=== PATIENT | female | born 1970 | race Caucasian/White ===

== ENCOUNTER → 2016-12-18 | Day surgery (SDC) | payer MEDICARE, OTHER ==
[~2016-12-18] VITALS: Ht 167.6 cm; Wt 89.6 kg
[~2016-12-18] MED LIST: *HYDROmorphone PF 1 MG VIAL PERIprocedural Use ONLY ONE; BUPR150CR PO; CLON1 PO; DO NOT ADM ANY ANTICOAGULANT DRUGS XX PRN; FERR325T PO; GABA800T PO; INSULIN HUMAN REGULAR 1,000 UNITS/10 ML VIAL SQ PRN; KETOROLAC TROMETHAMINE 30 MG/ML (IVP) VIAL ONE; LACTATED RINGER'S 1000 ML IV SCH; LIDOCAINE 1%/EPINEPHrine 1:100,000 SOLN 30 ML VIAL ONE; LORazepam 2 MG/ML VIAL IV ONE; LORazepam 2 MG/ML VIAL ONE; METOPROLOL TARTRATE 25 MG TAB PO PRN; MIDAZOLAM HCL 2 MG/2 ML VIAL ONE; ONDANSETRON HCL 4 MG/2 ML VIAL ONE; ONDANSETRON HCL 4 MG/5 ML UDC ONE; PROPOFOL 200 MG/20 ML AMP IV ONE; SODIUM CHLORID 0.9% 500 ML IV SCH; TRAM50TA PO; TRAZ50TA12 PO; VIIB40TA PO; ceFAZolin INJ 1,000 MG VIAL IV ONE; ceFAZolin INJ 1,000 MG VIAL ONE
[2016-12-18 12:05] VITALS: BP 163/100; PULSE 95; RESP 16; TEMP 98; O2SAT 96
[2016-12-18 12:32] LABS: AUTOMATED NEUTROPHIL # 4.1 TH/MM3 (1.8-7.7); BASOPHIL # 0.1 TH/MM3 (0-0.2); BASOPHIL % 1.4 % (0.0-2.0); EOSINOPHIL # 0.2 TH/MM3 (0-0.4); EOSINOPHIL % 3.3 % (0.0-4.0); HEMATOCRIT 38.1 % (35.0-46.0); HEMO FLAGS DIFF FINAL; LYMPH % 20.6 % (9.0-44.0); LYMPHOCYTE # 1.3 TH/MM3 (1.0-4.8); MEAN CELL VOLUME 81.9 FL (80.0-100.0); MEAN CORPUSCULAR HEMOGLOBIN 27.7 PG (27.0-34.0); MEAN CORPUSCULAR HGB CONC 33.8 % (32.0-36.0); MONO % 6.5 % (0.0-8.0); NEUT % 68.2 % (16.0-70.0); PLATELET COUNT 276 TH/MM3 (150-450); RED BLOOD COUNT 4.65 MIL/MM3 (4.00-5.30); RED CELL DISTRIBUTION WIDTH 17.1 % (11.6-17.2); WHITE BLOOD COUNT 6.1 TH/MM3 (4.0-11.0)
[2016-12-18 12:41] LABS: APTT (PATIENT) 26.2 SEC (24.3-30.1); PROTHROMBIN TIME - PATIENT 11.1 SEC (9.8-11.6)
[2016-12-18 16:28] VITALS: BP 154/92; PULSE 91; RESP 18; TEMP 97.4; O2SAT 99
--- NOTE | 2016-12-26 05:41 | MP ---
cc: ONOFRE STEPHEN MD,ANDRES BEAVERGULSHAN DATE OF SURGERY 12/18/2016 PREOPERATIVE DIAGNOSES 1. High-grade cervical dysplasia. 2. Status post prior LEEP procedure with negative margins but with positive endocervical curetting for high-grade dysplasia above the LEEP site. PROCEDURE 1. Examination under anesthesia. 2. Cold knife conization. 3. Endocervical curettage. ESTIMATED BLOOD LOSS 30 cc. SURGEON Onofre Stephen MD HUMAN FACTORS SPECIALIST [place] psychiatric technician assistant. ANESTHESIA General endotracheal anesthesia. IV FLUIDS Approximately 800. HISTORY A 46-year-old female with high-grade cervix dysplasia, underwent a LEEP procedure that confirmed high-grade squamous dysplasia. The ectocervical margins were negative. However, at the apex of the LEEP procedure was still detached fragments of high-grade dysplasia. She was counseled regarding concerns about the possibility of occult malignancy higher in the cervical canal and we recommended a conization to ensure there is no evidence of invasive disease prior to moving forward with a hysterectomy which was ultimately what she prefers for definitive treatment. FINDINGS Cervix grossly appears normal, has healed well healed well from the procedure. She has a very prominent cervix, although the tissue appears normal. The uterus is prominent. No adenopathy or overt neoplasm. The transformation zone is difficult to visualize due to healing from the prior LEEP procedure. PROCEDURE The patient was taken to the operating room, placed in dorsal lithotomy position after general endotracheal anesthesia was administered. Time-out was undertaken. The patient was identified by sight recognition and hospital ID bracelet and the proposed procedure was reviewed and confirmed. Exam under anesthesia was performed, reevaluation of the cervix after application of dilute acetic acid and exam under anesthesia with findings as described above. She was prepped and draped in sterile fashion. 0 Vicryl sutures were placed at the 3 and 9 o'clock positions on the lateral cervix, lidocaine epinephrine injected circumferentially into the cervix. The axis of the cervical canal and endometrium were identified using a uterine sound. Scalpel was used to form a central narrow cone incorporating the endocervical canal where it was removed as conization specimen followed by multiple passes, endocervical curetting proximal to the apex of the cone. This tissue was combined and labeled as endocervical curetting. The cone bed was cauterized, was rendered hemostatic and then topical Monsel's solution was used. Preliminary counts were correct. There were no remaining foreign objects in the vagina. It was completely hemostatic. Final counts were correct. She was returned to dorsal supine position and was pending reversal of anesthesia when I left the operating room to precede her to the Post-Anesthesia Care Unit. MD ELVA Hairston/SSB /10:45 AM /5:33 AM
== END | disposition home or self-care (01) ==
LOC: HSDC 11:09
PROVIDERS: ATTEND Obstetrics & Gynecology Gynecologic Oncology
DX: D06.9 Carcinoma in situ of cervix, unspecified (principal)
CPT/HCPCS: 00940; 57520; 85025; 85610; 85730; 86850; 86900; 86901; 88305; 88307; J0690; J1170; J1885; J2060; J2250; J2405; J3010; J7120

== ENCOUNTER 2017-02-18 08:20 | Inpatient (IN) | payer MEDICARE, OTHER ==
[~2017-02-18] VITALS: Ht 167.6 cm; Wt 87.8 kg
[~2017-02-18 08:20] MED LIST changes: -*HYDROmorphone PF 1 MG VIAL PERIprocedural Use ONLY ONE; -DO NOT ADM ANY ANTICOAGULANT DRUGS XX PRN; -INSULIN HUMAN REGULAR 1,000 UNITS/10 ML VIAL SQ PRN; -KETOROLAC TROMETHAMINE 30 MG/ML (IVP) VIAL ONE; -LACTATED RINGER'S 1000 ML IV SCH; -LIDOCAINE 1%/EPINEPHrine 1:100,000 SOLN 30 ML VIAL ONE; -LORazepam 2 MG/ML VIAL IV ONE; -LORazepam 2 MG/ML VIAL ONE; -METOPROLOL TARTRATE 25 MG TAB PO PRN; -MIDAZOLAM HCL 2 MG/2 ML VIAL ONE; -ONDANSETRON HCL 4 MG/2 ML VIAL ONE; -ONDANSETRON HCL 4 MG/5 ML UDC ONE; -PROPOFOL 200 MG/20 ML AMP IV ONE; -SODIUM CHLORID 0.9% 500 ML IV SCH; -TRAM50TA PO; -ceFAZolin INJ 1,000 MG VIAL IV ONE; -ceFAZolin INJ 1,000 MG VIAL ONE
[2017-02-18 08:30] VITALS: BP 114/81; PULSE 86; RESP 16; TEMP 98.1; O2SAT 95
[2017-02-18] MEDS ORDERED: LACTATED RINGER'S 1000 ML IV SCH (09:00)
[2017-02-18] MEDS ORDERED: HEPARIN SODIUM - SQ 10,000 UNITS/ML VIAL SQ SCH (09:00)
[2017-02-18] MEDS ORDERED: SODIUM CHLORID 0.9% 500 ML IV SCH (09:00)
[2017-02-18] MEDS ORDERED: INSULIN HUMAN REGULAR 1,000 UNITS/10 ML VIAL SQ PRN (09:00)
[2017-02-18] MEDS ORDERED: ceFAZolin 2 GM PREMIX 50 ML IV SCH (09:00)
[2017-02-18] MEDS ORDERED: METOPROLOL TARTRATE 25 MG TAB PO PRN (09:00)
[2017-02-18] MEDS ORDERED: ACETAMINOPHEN 1000 MG/100 ML VIAL IV ONE (12:06)
[2017-02-18] MEDS ORDERED: FAMOTIDINE 20 MG/2 ML VIAL ONE (12:06)
[2017-02-18] MEDS ORDERED: DEXAMETHASONE SOD PHOS 4 MG/ML VIAL ONE (12:39)
[2017-02-18] MEDS ORDERED: MIDAZOLAM HCL 2 MG/2 ML VIAL ONE (12:39)
[2017-02-18] MEDS ORDERED: LIDOCAINE 1%/EPINEPHrine 1:100,000 SOLN 30 ML VIAL INFIL ONE (13:33)
[2017-02-18] MEDS ORDERED: ceFAZolin INJ 1,000 MG VIAL IV ONE (15:05)
[2017-02-18] MEDS ORDERED: SUGAMMADEX SODIUM 200 MG/2 ML VIAL IV PUSH ONE ×2 (15:33)
[2017-02-18] MEDS ORDERED: D5-1/2 NS + KCL 20 MEQ INJ 1,000 ML IV SCH (16:28)
[2017-02-18] MEDS ORDERED: SODIUM CHLORIDE 0.9% FLUSH 10 ML FLUSH IV FLUSH PRN ×2 (16:30)
[2017-02-18] MEDS ORDERED: diphenhydrAMINE HCL 25 MG CAP PO PRN ×2 (16:30)
[2017-02-18] MEDS ORDERED: ONDANSETRON HCL 4 MG/2 ML VIAL IVP PRN ×2 (16:30)
[2017-02-18] MEDS ORDERED: KETOROLAC TROMETHAMINE 30 MG/ML (IVP) VIAL IVP SCH (16:30)
[2017-02-18] MEDS ORDERED: oxyCODONE/ACETAMINOPHEN 5 MG/325 MG TAB PO PRN (16:30)
[2017-02-18] MEDS ORDERED: *HYDROmorphone PF 1 MG VIAL PERIprocedural Use ONLY ONE ×2 (16:49→17:04)
[2017-02-18] MEDS ORDERED: fentaNYL CITRATE 250 MCG/5 ML AMP ONE (16:56)
[2017-02-18] MEDS: KETOROLAC TROMETHAMINE 30 MG/ML (IVP) VIAL IVP SCH ×2 (17:00→20:35)
[2017-02-18] MEDS: D5-1/2 NS + KCL 20 MEQ INJ 1,000 ML IV SCH (17:00)
[2017-02-18] MEDS ORDERED: DO NOT ADM ANY ANTICOAGULANT DRUGS XX PRN (17:00)
[2017-02-18] MEDS ORDERED: ONDANSETRON INJ 8 MG in DEXTROSE 5% IN WATER INJ 50 ML IV PUSH PRN ×2 (17:15)
[2017-02-18] MEDS ORDERED: *ONDANSETRON 4 MG VIAL PERIprocedural Use ONLY ONE (17:30)
[2017-02-18] MEDS ORDERED: VILAZODONE 40 MG PO SCH (18:00)
[2017-02-18] MEDS: GABAPENTIN 400 MG CAP PO SCH ×2 (18:00→23:35)
[2017-02-18 18:10] VITALS: BP 150/94; PULSE 88; RESP 22; TEMP 96.8; O2SAT 100
[2017-02-18] MEDS: oxyCODONE/ACETAMINOPHEN 5 MG/325 MG TAB PO PRN ×2 (18:57→23:35)
[2017-02-18 20:00] VITALS: BP 144/88; PULSE 60; RESP 18; TEMP 97.7; O2SAT 97
[2017-02-18] MEDS: traZODone HCL 50 MG TAB PO SCH (20:01)
[2017-02-18] MEDS: buPROPion HCL 150 MG SUSTAINED RELEASE TAB PO SCH (20:01)
[2017-02-18] MEDS: clonazePAM 1 MG TAB PO SCH (20:02)
[2017-02-18] MEDS: SODIUM CHLORIDE 0.9% FLUSH 10 ML FLUSH IV FLUSH SCH (20:03)
[2017-02-18 20:21] VITALS: O2SAT 99
[2017-02-18] MEDS ORDERED: traMADol HCL 50 MG TAB PO PRN (20:30)
[2017-02-18] MEDS: HYDROmorphone HCL PF 1 MG/ML VIAL IV PRN (20:59)
[2017-02-18] MEDS ORDERED: SODIUM CHLORIDE 0.9% FLUSH 10 ML FLUSH IV FLUSH SCH (21:00)
[2017-02-19] VITALS: BP 141/90; PULSE 70; RESP 18; TEMP 97.6; O2SAT 97
[2017-02-19] MEDS: HYDROmorphone HCL PF 1 MG/ML VIAL IV PRN ×7 (01:52→22:53)
[2017-02-19] MEDS: D5-1/2 NS + KCL 20 MEQ INJ 1,000 ML IV SCH ×3 (01:56→19:57)
[2017-02-19] MEDS: oxyCODONE/ACETAMINOPHEN 5 MG/325 MG TAB PO PRN ×5 (03:38→21:38)
[2017-02-19 04:00] VITALS: BP 144/94; PULSE 76; RESP 18; TEMP 97.9; O2SAT 100
[2017-02-19] MEDS: KETOROLAC TROMETHAMINE 30 MG/ML (IVP) VIAL IVP SCH ×4 (04:52→19:56)
[2017-02-19] MEDS: GABAPENTIN 400 MG CAP PO SCH ×4 (05:34→22:51)
[2017-02-19 06:56] LABS: AUTOMATED NEUTROPHIL # 7.6 TH/MM3 (1.8-7.7); BASOPHIL % 0.4 % (0.0-2.0); EOSINOPHIL % 0.5 % (0.0-4.0); HEMATOCRIT 37.5 % (35.0-46.0); HEMO FLAGS DIFF FINAL; LYMPH % 14.5 % (9.0-44.0); LYMPHOCYTE # 1.4 TH/MM3 (1.0-4.8); MEAN CELL VOLUME 82.6 FL (80.0-100.0); MEAN CORPUSCULAR HEMOGLOBIN 28.4 PG (27.0-34.0); MEAN CORPUSCULAR HGB CONC 34.4 % (32.0-36.0); MONO % 8.3 % (0.0-8.0); NEUT % 76.3 % (16.0-70.0); PLATELET COUNT 300 TH/MM3 (150-450); RED BLOOD COUNT 4.54 MIL/MM3 (4.00-5.30); RED CELL DISTRIBUTION WIDTH 14.9 % (11.6-17.2)
[2017-02-19 07:14] LABS: BICARBONATE 23.9 MEQ/L (21.0-32.0); POTASSIUM 3.7 MEQ/L (3.5-5.1)
[2017-02-19] MEDS: clonazePAM 1 MG TAB PO SCH ×2 (07:59→21:34)
[2017-02-19 08:00] VITALS: BP 137/80; PULSE 74; RESP 20; TEMP 96.8; O2SAT 97
[2017-02-19] MEDS: SODIUM CHLORIDE 0.9% FLUSH 10 ML FLUSH IV FLUSH SCH ×2 (08:00→19:57)
[2017-02-19] MEDS: buPROPion HCL 150 MG SUSTAINED RELEASE TAB PO SCH ×2 (08:00→21:34)
[2017-02-19 08:19] VITALS: O2SAT 96
[2017-02-19 12:00] VITALS: BP 113/83; PULSE 102; RESP 22; TEMP 98; O2SAT 96
[2017-02-19 20:00] VITALS: BP 112/70; PULSE 91; RESP 18; TEMP 98; O2SAT 99
[2017-02-19] MEDS: traZODone HCL 50 MG TAB PO SCH (21:34)
[2017-02-20] VITALS: BP 121/84; PULSE 79; RESP 16; TEMP 97.9; O2SAT 95
[2017-02-20] MEDS: HYDROmorphone HCL PF 1 MG/ML VIAL IV PRN ×6 (02:23→22:52)
[2017-02-20] MEDS: D5-1/2 NS + KCL 20 MEQ INJ 1,000 ML IV SCH ×3 (02:23→22:55)
[2017-02-20] MEDS: KETOROLAC TROMETHAMINE 30 MG/ML (IVP) VIAL IVP SCH ×4 (03:36→22:51)
[2017-02-20] MEDS: oxyCODONE/ACETAMINOPHEN 5 MG/325 MG TAB PO PRN ×5 (03:37→20:25)
[2017-02-20 04:00] VITALS: BP 141/75; PULSE 72; RESP 18; TEMP 97; O2SAT 98
[2017-02-20] MEDS: GABAPENTIN 400 MG CAP PO SCH ×4 (06:21→22:52)
[2017-02-20 07:50] VITALS: BP 125/83; PULSE 74; RESP 20; TEMP 96; O2SAT 95
--- NOTE | 2017-02-20 08:14 | PD.ONC.PN ---
Subjective Subjective Remarks POD #2 Pt c/o pain to lower abd has been OOB to chair X 1 yesterday reports not eating much no other complaints states using IS Objective Data Date Time Temp Pulse Resp B/P Pulse Ox O2 Delivery O2 Flow Rate FiO2 02/20/17 04:00 97.0 72 18 141/75 98 02/20/17 00:00 97.9 79 16 121/84 95 02/19/17 20:00 98.0 91 18 112/70 99 02/19/17 12:00 98.0 102 22 113/83 96 02/19/17 08:19 96 21 Result Diagram: 02/19/17 0530 02/19/17 0530 Administered Medications Medications (Trade) Dose Ordered Sig/Geovany Route PRN Reason Start Time Stop Time Status Last Admin Dose Admin Bupropion HCl (Wellbutrin Sr) 150 mg Q12HR PO 02/18/17 21:00 02/19/17 21:34 Clonazepam (KlonoPIN) 1 mg BID PO 02/18/17 21:00 02/19/17 21:34 Gabapentin (Neurontin) 400 mg Q6HR PO 02/18/17 18:00 02/20/17 06:21 Trazodone HCl 50 mg 50 mg HS PO 02/18/17 21:00 02/19/17 21:34 Potassium Chloride/Dextrose/ Sod Cl (D5-1/2 NS + KCl 20 Meq Inj) 1,000 ml @ 125 mls/hr Q8H IV 02/18/17 17:00 02/20/17 02:23 Ketorolac Tromethamine (Toradol Inj) 30 mg Q6H IVP 02/18/17 17:00 02/21/17 11:01 02/20/17 03:36 Oxycodone/ Acetaminophen 2 tab 2 tab Q4H PRN PO PAIN SCALE 6 TO 10 02/18/17 16:30 02/20/17 03:37 Ondansetron HCl/ Dextrose (Zofran Inj/D5W Inj) 54 ml @ 216 mls/hr Q8HR PRN IV PUSH SEE LABEL COMMENTS 02/18/17 17:15 02/19/17 00:55 Hydromorphone HCl (Dilaudid Pf Inj) 1 mg Q3H PRN IV BREAKTHROUGH PAIN 02/18/17 21:00 02/20/17 06:22 Objective Remarks GENERAL: Well-nourished, well-developed patient. SKIN: Warm and dry. HEAD: Normocephalic. EYES: No scleral icterus. No injection or drainage. CARDIOVASCULAR: Regular rate and rhythm without murmurs. RESPIRATORY: Breath sounds equal bilaterally. No accessory muscle use. GASTROINTESTINAL: dressing C/D/I EXTREMITIES: TEDs MUSCULOSKELETAL: Adequate muscle tone. NEUROLOGICAL: No obvious focal deficit. Awake, alert, and oriented x3. PSYCHIATRIC: Appropriate mood and affect; insight and judgment normal. Assessment/Plan Problem List: (1) Post-operative state Status: Acute Plan: s/p X lap for JACK with BSO continue IV Dilaudid encourage OOB to ambulate IS at bedside encourage intake decrease IVF anticipate D/C home in next 24-48 hours Kyle Wong Feb 20, 2017 08:14
[2017-02-20] MEDS: buPROPion HCL 150 MG SUSTAINED RELEASE TAB PO SCH ×2 (08:47→20:26)
[2017-02-20] MEDS: SODIUM CHLORIDE 0.9% FLUSH 10 ML FLUSH IV FLUSH SCH ×2 (08:47→20:26)
[2017-02-20] MEDS: clonazePAM 1 MG TAB PO SCH ×2 (08:47→20:25)
[2017-02-20 11:50] VITALS: BP 121/85; PULSE 78; RESP 20; TEMP 95.9; O2SAT 99
[2017-02-20 15:50] VITALS: BP 103/82; PULSE 98; RESP 20; TEMP 96.2; O2SAT 97
[2017-02-20 20:00] VITALS: BP 121/75; PULSE 111; RESP 18; TEMP 97.7; O2SAT 96
[2017-02-20] MEDS: traZODone HCL 50 MG TAB PO SCH (20:26)
[2017-02-21] VITALS: BP 122/87; PULSE 88; RESP 18; TEMP 96.6; O2SAT 97
[2017-02-21] MEDS: oxyCODONE/ACETAMINOPHEN 5 MG/325 MG TAB PO PRN ×3 (00:20→09:49)
[2017-02-21] MEDS: HYDROmorphone HCL PF 1 MG/ML VIAL IV PRN ×2 (03:33→06:29)
[2017-02-21 04:00] VITALS: BP 116/73; PULSE 80; RESP 17; TEMP 96.9; O2SAT 100
[2017-02-21] MEDS: KETOROLAC TROMETHAMINE 30 MG/ML (IVP) VIAL IVP SCH (04:54)
[2017-02-21] MEDS: GABAPENTIN 400 MG CAP PO SCH (04:54)
--- NOTE | 2017-02-21 06:19 | MP ---
cc: ONOFRE BELL MD, JULIE D. MD HOLE, SUSAN DO DATE OF PROCEDURE 02/18/2017 PREOPERATIVE DIAGNOSES 1. Cervical carcinoma in situ. 2. Secondary diagnosis of prolapsed mass through dilated cervix. 3. Significantly enlarged uterus. POSTOPERATIVE DIAGNOSES 1. Cervical carcinoma in situ. 2. Secondary diagnosis of prolapsed mass through dilated cervix. 3. Significantly enlarged uterus. PROCEDURE Laparoscopy converted to laparotomy. Total abdominal hysterectomy. Bilateral salpingo-oophorectomy. SURGEON Onofre Bell MD GRAIN ELEVATOR SUPERINTENDENT [place] unit assistant. ANESTHESIA General endotracheal anesthesia. ESTIMATED BLOOD LOSS 200 cc. IV FLUIDS 3000 cc. URINE OUTPUT 1500 cc. HISTORY This is a 46-year-old female who had been previously treated, most recently with a conization in followup to a prior LEEP procedure both of which showed carcinoma in situ. The first one had positive margins. The second one had residual carcinoma in situ. Margins were negative. She was counseled regarding ongoing followup versus definitive hysterectomy. She was in favor of hysterectomy and presents now for that endeavor. FINDINGS Unexpectedly on exam under anesthesia there was an approximately 4-5 cm in diameter necrotic-appearing mass that had prolapsed through a dilated cervix. This was a significant change compared to exam just a few weeks ago and there was generalized induration and edema of the cervix and lower uterine segment but without obvious infiltration into the parametria. The prolapsed mass blocked access to the endometrial cavity such that uterine manipulator could not be safely placed transvaginally. Upon laparoscopic evaluation, the prominence of the uterus was better appreciated; it was at least 14 cm in size but was also quite wide in diameter, solid, suggesting multiple leiomyomas and the lower uterine segment and cervix were markedly dilated which hindered to some extent laparoscopic access to the uterine blood supply. Because of these findings, decision was made to convert to laparotomy. Upon laparotomy the findings as noted were confirmed. There were no appreciably enlarged pelvic or para-aortic lymph nodes. There were no peritoneal implants. Liver and diaphragm edges were smooth. Large and small bowel adjacent mesentery were normal without implants. Frozen section evaluation of the uterus showed it to be a prolapsed necrotic leiomyoma. There were multiple leiomyomas throughout the uterus and what appeared to be adenomyosis; no evidence of malignancy. STATEMENT OF COMPLEXITY The complexity of the case was increased due to the increased size of the uterus, anatomical changes to the cervix with prolapse of mass. Modifier should be applied accordingly. PROCEDURE The patient was taken to the operating room, placed in dorsal lithotomy position after general endotracheal anesthesia was administered. Time-out was undertaken. The patient was identified by sight recognition and ID bracelet and the proposed procedure was reviewed and confirmed. She was carefully positioned and secured in anticipation of a laparoscopic robotic case in the usual fashion, prepped and draped in sterile fashion, placed in lithotomy position. Exam under anesthesia yielded the findings as described above. Tillman catheter was placed in the bladder. She was returned to low lithotomy position. We completed draping in anticipation of laparoscopy, confirmed that an orogastric airway was in the stomach on suction. With manual elevation of the abdominal wall and direct laparoscopic visualization, a 5-mm cannula was placed in the left upper quadrant. Carbon dioxide gas was insufflated and an atraumatic entry was confirmed. An 8-mm cannula was placed in the right upper quadrant and with that a grasper was used to evaluate the anatomy, manipulate the uterus. She was placed in steep Trendelenburg position. The anatomy was surveyed with findings as described above and it was felt that this case would be more safely and effectively approached via laparotomy. Therefore midline vertical incision was made from the symphysis up toward the umbilicus, carried down to the level of the fascia. The fascia was entered, the rectus muscles were in the midline. The peritoneal cavity was entered and the anatomy was explored with findings as described above. Lap pad the Bookwalter retractor were used to assist in surgical exposure. The right round ligament was doubly suture ligated, transected. The anterior and posterior leaves of the broad ligament were opened. The right ureter was identified. The right infundibulopelvic ligament was isolated. The intervening peritoneum was opened. The infundibulopelvic ligament was doubly clamped, cut and doubly suture ligated. The posterior peritoneum was opened along the right side of the uterus and cervix and the right vesicouterine peritoneum was dissected off the lower uterine segment and cervix. Attention was directed toward the left side where the left round ligament was doubly suture ligated and transected. The anterior and posterior leaves of the broad ligament were opened. The left ureter was identified. The left infundibulopelvic ligament was isolated. The intervening peritoneum was opened. The infundibulopelvic ligament was doubly clamped, cut and suture-ligated. Posterior peritoneum was opened along the left side of the uterus and cervix and the left vesicouterine peritoneum was dissected off the lower uterine segment and cervix and the uterine vessels were skeletonized bilaterally. The vessels were prominent and extending into the lower uterine segment and cervix and the vessels were doubly clamped bilaterally which helped gerardo the uterus but there were still some prominent vessels in the region of the cervix. The uterine vessels were transected and suture-ligated as were the cardinal, paracervical and uterosacral ligaments, taken down in a stepwise fashion. There were clamped, cut and suture ligated. The anatomical borders of the cervix were outlined with visual and manual palpation and adjoining of the uterosacral ligaments and the edge of the normal cervix was identified, realizing that there was a prolapsing mass extending beyond the cervix. Curved Mckeon clamps were placed below the cervix at the lateral vaginal angles, tissue was cut and suture ligated. Now sharp dissection was used to perform a colpotomy, opening the vaginal mucosa just below the cervix circumferentially to identify and confirmed that the entire cervix was removed with the prolapsing mass and the specimen was withdrawn which included uterus, cervix, bilateral tubes and ovaries and as well as the prolapsed mass through the cervix which was sent to pathologist. The vaginal cuff was closed with interrupted 0 Vicryl [id number] sutures, tied securely which rendered the cuff hemostatic. The angles were secured with posterior peritoneum and the edge of the uterosacral ligaments. The pelvis was thoroughly irrigated, small bleeders rendered hemostatic with bipolar cautery. There was a good margin between the vaginal cuff suture line and the edge of the bladder, good peristalsis of ureters and complete hemostasis and, to assist in continued hemostasis, Goran hemostatic powder was placed across the vaginal cuff and pelvic sidewalls. Frozen section came back showing benign findings. Therefore it was felt that all reasonable surgical objectives had been completed. The lap pads and Bookwalter retractor were removed and disassembled. Visual and manual inspection confirmed there were no remaining foreign objects in the peritoneal cavity. Preliminary counts were correct. The anatomy was again surveyed with the findings as described above. The abdominal wall was closed with a 0 looped PDS starting at the apices, meeting in the midpoint where the sutures were tied using a running modified Smead-Lopez closure technique; there were tied in the midpoint. Subcutaneous tissue was irrigated, Marito's fascia reapproximated with interrupted 2-0 Vicryl sutures, the subcutaneous tissue again irrigated and subcuticular 3-0 Vicryl running was used to close the skin edges. 3-0 Vicryls were also used subcutaneous and subcuticular to close the two laparoscopic incisions and Steri-Strips were placed over all of these incisions. She was again placed in lithotomy position. Pelvic exam confirmed there were no remaining foreign objects in the vagina. Preliminary and final counts were correct. She was returned to dorsal supine position and was pending reversal of anesthesia when I left the operating room to precede her to the Post Anesthesia Care Unit and to speak with family members. MD ELVA Hairtson/KANDACE /9:06 AM /5:52 AM
[2017-02-21 07:50] VITALS: BP 137/85; PULSE 75; RESP 20; TEMP 96.2; O2SAT 99
[2017-02-21] MEDS: SODIUM CHLORIDE 0.9% FLUSH 10 ML FLUSH IV FLUSH SCH (09:00)
[2017-02-21] MEDS: buPROPion HCL 150 MG SUSTAINED RELEASE TAB PO SCH (09:49)
[2017-02-21] MEDS: clonazePAM 1 MG TAB PO SCH (09:49)
--- NOTE | 2017-02-28 07:58 | MD ---
cc: ONOFRE BELL MD,GULSHAN BENITO MD, DO ADMISSION DATE: 02/18/2017 DISCHARGE DATE: 02/21/2017 PROCEDURE 02/18/2017 laparoscopy converted to laparotomy, total abdominal hysterectomy, bilateral salpingo-oophorectomy. DIAGNOSIS Cervical carcinoma in situ, prolapsed leiomyoma through the cervix, leiomyomas and adenomyosis. HOSPITAL COURSE She did satisfactorily during her hospital course such that by postop day #3, she was tolerating oral intake. She was ambulating without assistance. She had some flatus. She had no nausea or vomiting. She is hemodynamically stable. Anxiety and pain continued to be issues, but seemed to be adequately controlled. She presented with the option of hospital care for another 24 hours versus going home. She is absolutely certain that she feels well enough and wishes to go home today. In's and out's 2700/4950, +850 in, over 1300 out. She has remained afebrile, pulse ranging from 80-111, respirations 17-20, blood pressure 103-122 over 73-87, O2 saturations greater than equal to 96%. PHYSICAL EXAM On exam, she is alert and oriented x3 in no acute distress, anxious consistent with baseline. LUNGS: Clear except for mild rales at the bases. CARDIOVASCULAR: Regular rate and rhythm. ABDOMEN: Soft. Incisions are clean and dry. She has some discomfort, tenderness consistent with surgery, but her abdomen is nonacute. GRADUATE STUDIES DEAN: There is no bleeding. EXTREMITIES: SCD's intact. Nontender. ASSESSMENT Postop day #3 progressing satisfactorily in her postop recovery. Activities and restrictions reviewed. Preliminary pathology discussed. Questions were asked and answered. She expressed a good understanding and is in favor of going home. PLAN Therefore discharge to home. She is to continue her prior medication, although I have put a hold on her iron supplement because of its GI side effects and especially in the postop period. She is to continue her previous anxiolytics and antidepressants. It was determined that Dilaudid was a better pain medicine for her then Oxycodone and she will be sent home with a prescription for oral Dilaudid. She is to contact our office to ensure she has schedule follow up within two weeks and our office number is again made available should she have any questions or problems between now in the time of scheduled followup. MD NISHA Hairston /7:28 AM /7:54 AM
== END 2017-02-21 11:30 | disposition home health service (06) | DRG 741 ==
LOC: HSDC 08:20 → HSDI 16:27 → HOCA 18:14
PROVIDERS: ADMIT Obstetrics & Gynecology Gynecologic Oncology; ATTEND Obstetrics & Gynecology Gynecologic Oncology
PROC: 0UT70ZZ Resection of Bilateral Fallopian Tubes, Open Approach (ICD-10-PCS; 2017-02-18)
PROC: 0UT20ZZ Resection of Bilateral Ovaries, Open Approach (ICD-10-PCS; 2017-02-18)
PROC: 0UTC0ZZ Resection of Cervix, Open Approach (ICD-10-PCS; 2017-02-18)
PROC: 8E0W4CZ Robotic Assisted Procedure of Trunk Region, Percutaneous Endoscopic Approach (ICD-10-PCS; 2017-02-18)
PROC: 0UT90ZZ Resection of Uterus, Open Approach (ICD-10-PCS; principal; 2017-02-18 12:42)
PROC: 0UJD4ZZ Inspection of Uterus and Cervix, Percutaneous Endoscopic Approach (ICD-10-PCS; 2017-02-18 12:42)
DX: D06.9 Carcinoma in situ of cervix, unspecified (principal); N85.2 Hypertrophy of uterus; Z53.31 Laparoscopic surgical procedure converted to open procedure
CPT/HCPCS: 80048; 85025; 86850; 86900; 86901; 88307; 88309; 88331; 94150; J0131; J0690; J1100; J1170; J1644; J1885; J2250; J2405; J3010; J3480; J7120